=== PATIENT | male | born 1985 | race African-American/Black ===

== ENCOUNTER 2022-03-19 12:20 | Emergency (ER) | payer MEDICAID ==
[~2022-03-19] VITALS: Ht 172.7 cm; Wt 65.0 kg
[2022-03-19 12:27] VITALS: BP 141/88
[2022-03-19] MEDS ORDERED: TETANUS, DIPHTHERIA, PERTUSSIS VAC/PF 0.5ML (>10YR OLD) IM ONE (15:15)
[2022-03-19] MEDS ORDERED: MUPI22OI2 TP (15:16)
[2022-03-19] MEDS ORDERED: CEPH500C2 MT (15:16)
[2022-03-19] MEDS ORDERED: IBUP-2029 MT (15:16)
== END 2022-03-19 16:10 | disposition home or self-care (01) ==
LOC: ER 12:20
DX: M79.672 Pain in left foot (principal); Z59.00 Homelessness unspecified
CPT/HCPCS: 90471; 90715; 99283